=== PATIENT | female | born 1980 | race Caucasian/White ===

== ENCOUNTER → 2017-06-30 | Outpatient (REF) ==
[~2017-06-30] MED LIST: PRENATAL1 TA1 PO
== END ==
LOC: WSOH 17:45
DX: Z02.89 Encounter for other administrative examinations (principal)

== ENCOUNTER → 2024-02-01 | Outpatient (CLI) | payer OTHER ==
[2006-04-21 07:30] VITALS: TEMP 97.9
== END ==
LOC: MC.RAD 12:58
DX: Z12.31 Encounter for screening mammogram for malignant neoplasm of breast (principal)